=== PATIENT | female | born 1985 | race Caucasian/White ===

== ENCOUNTER 2017-03-13 09:30 | Inpatient (IN) | payer OTHER ==
[~2017-03-13] VITALS: Ht 157.5 cm; Wt 99.8 kg
[2017-03-13] MEDS ORDERED: PRENATAL 19 TA1 EAC1 PO (12:05)
[2017-03-22] MEDS ORDERED: NIFEDIPINE ER30 MG PO (11:51)
[2017-03-22] MEDS ORDERED: LASIX20 MG PO (11:51)
[2017-03-22] MEDS ORDERED: Coreg 6.25MG TABLET PO (11:51)
[2017-03-22] MEDS ORDERED: AVAPRO150 MG PO (11:51)
== END 2017-03-22 15:04 | disposition home or self-care (01) | DRG 765 ==
LOC: EDBD 09:30 → EDSTATUS 09:30 → ADM 09:30 → LDR 03-14 10:04 → ICU 03-14 10:04 → OB/GYN 03-15 09:30 → LDR 03-15 11:51 → ICU 03-15 13:28 → MEDI 03-21 11:49
PROVIDERS: Obstetrics & Gynecology
PROC: 0UT70ZZ Resection of Bilateral Fallopian Tubes, Open Approach (ICD-10-PCS; 2017-03-14)
PROC: 4A1HXCZ Monitoring of Products of Conception, Cardiac Rate, External Approach (ICD-10-PCS; 2017-03-14)
PROC: 30233N1 Transfusion of Nonautologous Red Blood Cells into Peripheral Vein, Percutaneous Approach (ICD-10-PCS; 2017-03-14)
PROC: 4A033R1 Measurement of Arterial Saturation, Peripheral, Percutaneous Approach (ICD-10-PCS; 2017-03-14)
PROC: 10D00Z1 Extraction of Products of Conception, Low, Open Approach (ICD-10-PCS; principal; 2017-03-14 21:00)
PROC: 3E0F7GC Introduction of Other Therapeutic Substance into Respiratory Tract, Via Natural or Artificial Opening (ICD-10-PCS; 2017-03-15)
PROC: B246ZZZ Ultrasonography of Right and Left Heart (ICD-10-PCS; 2017-03-15)
PROC: 5A1955Z Respiratory Ventilation, Greater than 96 Consecutive Hours (ICD-10-PCS; 2017-03-15)
PROC: 0BH17EZ Insertion of Endotracheal Airway into Trachea, Via Natural or Artificial Opening (ICD-10-PCS; 2017-03-15)
PROC: 06HM33Z Insertion of Infusion Device into Right Femoral Vein, Percutaneous Approach (ICD-10-PCS; 2017-03-15)
PROC: 5A1945Z Respiratory Ventilation, 24-96 Consecutive Hours (ICD-10-PCS; 2017-03-15)
PROC: B54DZZZ Ultrasonography of Bilateral Lower Extremity Veins (ICD-10-PCS; 2017-03-15)
PROC: 30233N1 Transfusion of Nonautologous Red Blood Cells into Peripheral Vein, Percutaneous Approach (ICD-10-PCS; 2017-03-16)
PROC: B32TYZZ Computerized Tomography (CT Scan) of Left Pulmonary Artery using Other Contrast (ICD-10-PCS; 2017-03-17)
PROC: B32SYZZ Computerized Tomography (CT Scan) of Right Pulmonary Artery using Other Contrast (ICD-10-PCS; 2017-03-17)
DX: O99.513 Diseases of the respiratory system complicating pregnancy, third trimester (principal); J16.8 Pneumonia due to other specified infectious organisms; J95.821 Acute postprocedural respiratory failure; J95.89 Other postprocedural complications and disorders of respiratory system, not elsewhere classified; O14.93 Unspecified pre-eclampsia, third trimester; O23.43 Unspecified infection of urinary tract in pregnancy, third trimester; O99.013 Anemia complicating pregnancy, third trimester; Z3A.39 39 weeks gestation of pregnancy; D50.0 Iron deficiency anemia secondary to blood loss (chronic); O34.211 Maternal care for low transverse scar from previous cesarean delivery; Z37.0 Single live birth; O75.1 Shock during or following labor and delivery; Z30.2 Encounter for sterilization; Z64.1 Problems related to multiparity